=== PATIENT | male | born 1960 | race Caucasian/White ===

== ENCOUNTER 2021-01-02 15:03 | Emergency (ER) | payer MEDICAID ==
[~2021-01-02] VITALS: Ht 170.2 cm; Wt 74.8 kg
[2021-01-02 15:27] VITALS: BP 141/82
[2021-01-02] MEDS ORDERED: METF-440 PO ×2 (15:27→17:48)
--- NOTE | 2021-01-02 16:00 | NUR ---
THE PATIENT BIBS FOR MED REFILL. DENIES HAVING ANY DISTRESS. RESPIRATION REGULAR AND UNLABORED.
--- NOTE | 2021-01-02 18:00 | NUR ---
Patient discharged to home in stable condition. Written and verbal after care instructions given. Patient verbalizes understanding of instruction.
== END 2021-01-02 18:01 | disposition home or self-care (01) ==
LOC: ER 15:06
DX: E11.621 Type 2 diabetes mellitus with foot ulcer (principal); L97.529 Non-pressure chronic ulcer of other part of left foot with unspecified severity; Z76.0 Encounter for issue of repeat prescription; Z79.84 Long term (current) use of oral hypoglycemic drugs
CPT/HCPCS: 93971-TC

== ENCOUNTER 2021-03-15 13:02 | Emergency (ER) | payer MEDICAID ==
[~2021-03-15] VITALS: Ht 170.2 cm; Wt 81.2 kg
[~2021-03-15 13:02] MED LIST: METF-440 PO
[2021-03-15 13:32] VITALS: BP 137/78
--- NOTE | 2021-03-15 15:57 | NUR ---
PT REFUSED COVID ANTIGEN AND INFLUENZA SWAB
[2021-03-15] MEDS ORDERED: METF-440 PO (16:02)
--- NOTE | 2021-03-15 16:09 | NUR ---
Patient discharged to home in stable condition. Written and verbal after care instructions given. Patient verbalizes understanding of instruction.
== END 2021-03-15 16:10 | disposition home or self-care (01) ==
LOC: EDUNIT# 13:02 → ER 13:03
DX: E11.9 Type 2 diabetes mellitus without complications (principal); Z76.0 Encounter for issue of repeat prescription; Z79.84 Long term (current) use of oral hypoglycemic drugs
CPT/HCPCS: 71045-TC

== ENCOUNTER 2021-05-27 15:01 | Emergency (ER) | payer OTHER ==
[~2021-05-27] VITALS: Ht 170.2 cm; Wt 83.9 kg
[2021-05-27 15:01] VITALS: BP 131/88
[2021-05-27] MEDS ORDERED: METF-442 PO (16:16)
[2021-05-27] MEDS ORDERED: GLIP5TAB13 PO (16:16)
== END 2021-05-27 16:29 | disposition home or self-care (01) ==
LOC: ER 15:06
DX: E11.65 Type 2 diabetes mellitus with hyperglycemia (principal); Z76.0 Encounter for issue of repeat prescription; Z79.84 Long term (current) use of oral hypoglycemic drugs

== ENCOUNTER → 2021-07-05 | Emergency (ER) | payer OTHER ==
[~2021-07-05] VITALS: Ht 170.2 cm; Wt 79.4 kg
[~2021-07-05] MED LIST changes: +GLIP5TAB13 PO; +METF-442 PO
[2021-07-05 17:24] VITALS: BP 181/92
--- NOTE | 2021-07-05 18:04 | NUR ---
Patient discharged to home in stable condition. Written and verbal after care instructions given. Patient verbalizes understanding of instruction.
--- NOTE | 2021-07-05 18:05 | NUR ---
UNABLE TO DEPART, [facility] ERROR
== END | disposition home or self-care (01) ==
LOC: ER 17:20
DX: E11.65 Type 2 diabetes mellitus with hyperglycemia (principal); Z76.0 Encounter for issue of repeat prescription; R03.0 Elevated blood-pressure reading, without diagnosis of hypertension; R35.89 Other polyuria; Z79.899 Other long term (current) drug therapy
CPT/HCPCS: 82962-TC

== ENCOUNTER 2021-12-17 15:49 | Emergency (ER) | payer OTHER ==
[~2021-12-17] VITALS: Ht 170.2 cm; Wt 83.9 kg
[2021-12-17 16:15] VITALS: BP 153/66
[2021-12-17] MEDS ORDERED: METF-440 PO (16:30)
[2021-12-17] MEDS ORDERED: GLIP5TAB13 PO (16:30)
== END 2021-12-17 17:07 | disposition home or self-care (01) ==
LOC: ER 15:50
DX: E11.9 Type 2 diabetes mellitus without complications (principal); Z79.899 Other long term (current) drug therapy

== ENCOUNTER 2022-03-14 17:19 | Inpatient (IN) | payer OTHER ==
[~2022-03-14] VITALS: Ht 170.2 cm; Wt 83.0 kg
--- NOTE | 2022-03-14 17:30 | NUR ---
BIBS C/O abdominal distension, scrotal and ble swelling x 2 weeks. hypertensive captain waiter/waitress. AMBULATORY, PLACED IN BED, BREATHING UNLABORED SATURATING AT 96%RA
--- NOTE | 2022-03-14 17:41 | NUR ---
DR ESPINOZA AT BEDSIDE
--- NOTE | 2022-03-14 17:50 | NUR ---
BLOOD DRAWN AND SENT TO LAB
[2022-03-14] MEDS ORDERED: FUROSEMIDE 40 MG/4 ML VIAL ONE (17:55)
[2022-03-14] MEDS ORDERED: FUROSEMIDE 40 MG/4 ML VIAL IV ONE (18:00)
[2022-03-14 18:12] LABS: BASOPHILS % (AUTO) 1.1 % (0.0-2.0); HEMATOCRIT 40 % (39-51); HEMOGLOBIN 12.5 g/dL (13.5-17.5); LYMPHOCYTES # (AUTO) 1.2 K/uL (0.8-4.8); LYMPHOCYTES % (AUTO) 24.2 % (20.0-44.0); MEAN CORPUSCULAR HGB CONC 31 g/dl (31.0-36.0); MEAN CORPUSCULAR VOLUME 79 fL (80-96); MONOCYTES # (AUTO) 0.6 K/uL (0.1-1.30); MONOCYTES % (AUTO) 10.9 % (2.0-12.0); NEUTROPHILS # (AUTO) 3.1 K/uL (1.8-8.9); NEUTROPHILS % (AUTO) 60.8 % (43.0-81.0); PLATELET COUNT (AUTO) 292 K/uL (150-450); RED BLOOD CELL COUNT(AUTO) 5.09 MIL/uL (4.5-6.0); WHITE BLOOD COUNT (AUTO) 5.1 K/uL (4.3-11.0)
[2022-03-14 18:13] LABS: BASOPHILS # (AUTO) 0.1 K/uL (0.0-0.2)
[2022-03-14 18:45] LABS: CALCIUM, SERUM 8.6 mg/dL (8.5-10.1); CARBON DIOXIDE 26 mmol/L (21-32); CHLORIDE 104 mmol/L (98-107); CREATININE 1.5 mg/dL (0.6-1.3); GLUCOSE 215 mg/dL (74-106); POTASSIUM 3.7 mmol/L (3.5-5.1); SODIUM SERUM 140 mmol/L (136-145); UREA NITROGEN, BLOOD 19 mg/dL (7-18)
[2022-03-14 18:58] LABS: ALANINE AMINOTRANSFERASE 27 U/L (12-78); ALBUMIN 2.8 g/dL (3.4-5.0); ALKALINE PHOSPHATASE 188 U/L (46-116); ASPARTATE AMINOTRANSFERASE 17 U/L (15-37); BILIRUBIN,DIRECT 0.2 mg/dL (0.0-0.2); BILIRUBIN,TOTAL 0.4 mg/dL (0.2-1.0); TOTAL PROTEIN, SERUM 7.4 g/dL (6.4-8.2)
--- NOTE | 2022-03-14 19:47 | NUR ---
SWAB FOR COVID19 SENT TO LAB
--- NOTE | 2022-03-14 20:14 | NUR ---
[facility] PAGED
[2022-03-14] MEDS ORDERED: DEXTROSE 50%-WATER 50 ML DISP.SYRIN IV PRN (22:30)
[2022-03-14] MEDS ORDERED: Z GUARD REMEDY 4 OZ OINT TP PRN (22:30)
[2022-03-14] MEDS ORDERED: ONDANSETRON HCL/PF 4 MG/2 ML VIAL IVP PRN (22:30)
[2022-03-14] MEDS ORDERED: ACETAMINOPHEN 325 MG TABLET PO PRN (22:30)
--- NOTE | 2022-03-14 23:37 | NUR ---
URINE SAMPLE SENT TO LAB
--- NOTE | 2022-03-14 23:39 | NUR ---
RM325
--- NOTE | 2022-03-14 23:55 | NUR ---
REPORT GIVEN TO RL MONET
[2022-03-14 23:57] LABS: BILIRUBIN,URINE NEGATIVE (NEGATIVE); COLOR,URINE YELLOW (YELLOW); LEUKOCYTE ESTERASE ,URINE NEGATIVE (NEGATIVE); NITRITE, URINE NEGATIVE (NEGATIVE); PH,URINE 5.5 (5.0-8.0); PROTEIN,URINE 2+ mg/dl (NEGATIVE); UGLUCOSE NEGATIVE (NEGATIVE); UROBILINOGEN,URINE 0.2 EU/dL (0.2)
[2022-03-14 23:58] LABS: BACTERIA,URINE Rare /HPF (None Seen); HYALINE CASTS, URINE Few /LPF (None Seen); SQUAMOUS EPITHELIAL CELL,UR Few /HPF (None Seen); WBC,URINE 0-2 /HPF (0-3)
--- NOTE | 2022-03-15 00:33 | NUR ---
TRANSFER TO ROOM VIA ACLS PROTOCOL
--- NOTE | 2022-03-15 00:40 | NUR ---
SPIRAL WINDERBUSINESS PLANNING ANALYST NOTES RECEIVED PT FROM ER NURSE MAGALY SHINE. PATIENT IS A/O X 4. ON ROOM AIR. NO SOB. NO S/S OS DISTRESS NOTED. PT DENIES ANY PAIN. V/S STABLE. TELEMONITOR SHOWS SINUS RHYTHM. IV SITE ON THE LEFT AC G20, INTACT AND PATENT, FLUSHES WELL. SKIN ASSESSMENT DONE AND PERFORMED. PICTURES TAKEN. PT BELONGINGS CHECKED AND SIGNED BY PATIENT. PATIENT'S MONEY STORED AT THE DOZER OPERATOR SAFE. PATIENT IS AWARE AND INFORMED. RE-ORIENT PATIENT TO THE ROOM AND USE OF CALL LIGHT. PT VERBALIZED UNDERSTANDING. SAFETY PRECAUTIONS MAINTANED WITH BED ON LOCKED AND LOWEST POSITION. SIDE RAILS UP X 2. HOB ELEVATED. BED ALARM ON. URINAL AT THE BEDSIDE. CALL LIGHT WITHIN REACH.WILL ENDORSE TO THE NEXT SHIFT FOR CONTINUITY OF CARE.
[2022-03-15 01:00] VITALS: BP 141/49
[2022-03-15 06:19] LABS: BASOPHILS # (AUTO) 0.1 K/uL (0.0-0.2); BASOPHILS % (AUTO) 1.1 % (0.0-2.0); EOSINOPHILS % (AUTO) 3.7 % (0.0-6.0); HEMATOCRIT 36 % (39-51); HEMOGLOBIN 11.2 g/dL (13.5-17.5); LYMPHOCYTES # (AUTO) 1.2 K/uL (0.8-4.8); LYMPHOCYTES % (AUTO) 25.6 % (20.0-44.0); MEAN CORPUSCULAR HGB CONC 32 g/dl (31.0-36.0); MEAN CORPUSCULAR VOLUME 79 fL (80-96); MONOCYTES # (AUTO) 0.6 K/uL (0.1-1.30); MONOCYTES % (AUTO) 12.3 % (2.0-12.0); NEUTROPHILS # (AUTO) 2.8 K/uL (1.8-8.9); NEUTROPHILS % (AUTO) 57.3 % (43.0-81.0); PLATELET COUNT (AUTO) 260 K/uL (150-450); RED BLOOD CELL COUNT(AUTO) 4.52 MIL/uL (4.5-6.0); WHITE BLOOD COUNT (AUTO) 4.8 K/uL (4.3-11.0)
[2022-03-15 06:27] LABS: CALCIUM, SERUM 8.6 mg/dL (8.5-10.1); CREATININE 1.3 mg/dL (0.6-1.3); MAGNESIUM 1.6 mg/dL (1.8-2.4); PHOSPHORUS 3.5 mg/dL (2.5-4.9); POTASSIUM 3.7 mmol/L (3.5-5.1)
[2022-03-15 06:39] LABS: THYROID STIMULATING HORMONE 0.966 uIU/mL (0.358-3.74)
[2022-03-15 07:00] VITALS: BP 185/126
[2022-03-15] MEDS: BLOOD SUGAR DIAGNOSTIC 1 EACH STRIP IN SCH ×4 (07:00→21:33)
[2022-03-15] MEDS: INSULIN REGULAR, HUMAN 100 UNIT/ML 3 ML VIAL SQ PRN ×4 (07:03→21:38)
--- NOTE | 2022-03-15 07:05 | NUR ---
BATTERY BUILDER CLOSING NOTES PATIENT IS RESTING COMFORTABLY. A/O X 4. PATIENT IS STABLE. TELEMONITOR IS SINUS RHYTHM 87. MEDICATIONS GIVEN. NO S/S OF ANY DISTRESS NOTED. SAFETY MEASURES MAINTAINED WITH BED ON LOWEST POSITION AND LOCKED. SIDE RAILS UP X 2. CALL LIGHT WITHIN REACH. WILL ENDORSE TO THE NEXT SHIFT FOR CONTINUITY OF CARE.
--- NOTE | 2022-03-15 07:40 | NUR ---
GEOTECHNICAL FIELD TECHNICIAN OPENING NOTE PATIENT RECEIVED ASLEEP IN BED, EASILY AROUSED, VERY CALM AND WITHOUT ANY SIGNS OF DISTRESS. TELE MONITOR SHOWING NSR IN LOW 90s BPM. LUNG SOUNDS DIMINISHED IN LOWER LOBES, BUT OTHERWISE CLEAR TO AUSCULTATION. PT HAS POSITIVE BOWEL SOUNDS. ALL FOUR EXTREMITIES HAVE PRESENT PULSES, ARE WARM TO TOUCH WITH GOOD CAPILLARY REFILL. PT IS ALERT AND ORIENTED X 4. SAFETY PRECAUTIONS MAINTAINED WITH BED IN LOWEST LOCKED POSITION, THREE BED SIDERAILS UP, AND CALL BARRIOS WITHIN PT'S REACH. PT DEMONSTRATES GOOD JUDGEMENT AND ABLE TO MAKE HIS NEEDS KNOWN. PT IDENTIFICATION BAND INTACT AND SECURE TO PT'S WRIST. WILL MONITOR FOR NAHED.
[2022-03-15] MEDS: PANTOPRAZOLE 40 MG TABLET.DR PO SCH (07:47)
[2022-03-15] MEDS ORDERED: HEPARIN SODIUM, PORCINE 5000 UNITS/1 ML VIAL SQ SCH (09:00)
[2022-03-15] MEDS ORDERED: FUROSEMIDE 40 MG/4 ML VIAL IV SCH (09:00)
[2022-03-15] MEDS ORDERED: MAGNESIUM OXIDE 400 MG TABLET PO ONE ×2 (10:00→15:00)
[2022-03-15] MEDS ORDERED: POTASSIUM CHLORIDE 20 MEQ TAB.PRT.SR PO SCH (10:00)
[2022-03-15 12:00] VITALS: BP 178/123
[2022-03-15] MEDS: FUROSEMIDE 40 MG/4 ML VIAL IV SCH ×3 (13:30→17:37)
[2022-03-15] MEDS: glipiZIDE 5 MG TABLET PO SCH (14:26)
[2022-03-15] MEDS: POTASSIUM CHLORIDE 20 MEQ TAB.PRT.SR PO SCH ×3 (14:48→17:13)
[2022-03-15 16:00] VITALS: BP 167/106
[2022-03-15] MEDS: METFORMIN 500 MG TABLET PO SCH (17:13)
--- NOTE | 2022-03-15 18:50 | NUR ---
ACADEMIC ASSISTANT CLOSING NOTE PATIENT IS RESTING COMFORTABLY. A/O X 4. PATIENT IS STABLE. TELE MONITOR IS SINUS RHYTHM 60S TO 80S THROUGHOUT THE DAY. CXR COMPLETED AND SHOWS CONSISTENCE WITH CHF. MEDICATIONS GIVEN ORDERED. NO S/S OF ANY DISTRESS NOTED. SAFETY MEASURES MAINTAINED WITH BED ON LOWEST POSITION AND LOCKED. SIDE RAILS UP X 2. CALL LIGHT WITHIN REACH. PATIENT USED URINAL WELL TO VOID FREQUENTLYWHILE ON LASIX DIURETIC. WILL ENDORSE TO THE NEXT SHIFT FOR CONTINUITY OF CARE.
[2022-03-15 20:00] VITALS: BP 144/102
[2022-03-15] MEDS: INSULIN GLARGINE, 100 UNIT/ML CARTRIDGE SQ SCH (21:34)
[2022-03-16] VITALS: BP 140/87
[2022-03-16 04:00] VITALS: BP 155/101
[2022-03-16 06:05] LABS: BASOPHILS % (AUTO) 0.8 % (0.0-2.0); EOSINOPHILS % (AUTO) 3.9 % (0.0-6.0); HEMATOCRIT 34 % (39-51); HEMOGLOBIN 10.8 g/dL (13.5-17.5); LYMPHOCYTES # (AUTO) 1.2 K/uL (0.8-4.8); LYMPHOCYTES % (AUTO) 24.2 % (20.0-44.0); MEAN CORPUSCULAR HGB CONC 32 g/dl (31.0-36.0); MEAN CORPUSCULAR VOLUME 78 fL (80-96); MONOCYTES # (AUTO) 0.7 K/uL (0.1-1.30); MONOCYTES % (AUTO) 15.2 % (2.0-12.0); NEUTROPHILS # (AUTO) 2.7 K/uL (1.8-8.9); NEUTROPHILS % (AUTO) 55.9 % (43.0-81.0); PLATELET COUNT (AUTO) 266 K/uL (150-450); RED BLOOD CELL COUNT(AUTO) 4.35 MIL/uL (4.5-6.0); WHITE BLOOD COUNT (AUTO) 4.8 K/uL (4.3-11.0)
--- NOTE | 2022-03-16 06:15 | NUR ---
END OF SHIFT REPORT Patient in bed, Alert Oriented x4. Sinus rhythm HR 87 in the Tele monitor. Oxygen saturation high 90's on RA. BLE edema +1 Denies pain. No respiratory distress during the shift. Denies chest pain. No BM during the shift, voided urine. Good urine output. Echo pending result. Will endorse to oncoming RN.
[2022-03-16 06:43] LABS: ALBUMIN 2.2 g/dL (3.4-5.0); BILIRUBIN,TOTAL 0.5 mg/dL (0.2-1.0); CALCIUM, SERUM 8.3 mg/dL (8.5-10.1); CREATININE 1.3 mg/dL (0.6-1.3); MAGNESIUM 1.7 mg/dL (1.8-2.4); PHOSPHORUS 3.2 mg/dL (2.5-4.9); POTASSIUM 3.6 mmol/L (3.5-5.1); TOTAL PROTEIN, SERUM 5.9 g/dL (6.4-8.2)
[2022-03-16] MEDS: INSULIN REGULAR, HUMAN 100 UNIT/ML 3 ML VIAL SQ PRN ×3 (06:57→17:17)
[2022-03-16] MEDS: BLOOD SUGAR DIAGNOSTIC 1 EACH STRIP IN SCH ×4 (06:57→22:13)
[2022-03-16 07:00] VITALS: BP_SYST 142; BP_SYST 163; BP_DIAS 101; BP_DIAS 65
--- NOTE | 2022-03-16 07:45 | NUR ---
CARDIO TECH OPENING NOTE PATIENT RECEIVED AWAKE UP OUT-OF-BED BED USING TOILET IN THE BATHROOM. PATIENT IS CALM AND WITHOUT ANY SIGNS OF DISTRESS. TELE MONITOR SHOWING NSR IN LOW 90s BPM. LUNG SOUNDS DIMINISHED IN LOWER LOBES, BUT OTHERWISE CLEAR TO AUSCULTATION. PT HAS POSITIVE BOWEL SOUNDS. ALL FOUR EXTREMITIES HAVE PRESENT PULSES, ARE WARM TO TOUCH WITH GOOD CAPILLARY REFILL. PT IS ALERT AND ORIENTED X 4. SAFETY PRECAUTIONS MAINTAINED WITH BED IN LOWEST LOCKED POSITION, THREE BED SIDERAILS UP, AND CALL BARRIOS WITHIN PT'S REACH. PT DEMONSTRATES GOOD JUDGEMENT AND ABLE TO MAKE HIS NEEDS KNOWN. PT IDENTIFICATION BAND INTACT AND SECURE TO PT'S WRIST. WILL MONITOR FOR NAHED.
[2022-03-16] MEDS: PANTOPRAZOLE 40 MG TABLET.DR PO SCH (07:52)
[2022-03-16] MEDS: METFORMIN 500 MG TABLET PO SCH ×2 (08:29→17:26)
[2022-03-16] MEDS: glipiZIDE 5 MG TABLET PO SCH (08:29)
[2022-03-16] MEDS: ENOXAPARIN SODIUM 40 MG/0.4 ML DISP.SYRIN SQ SCH (08:30)
[2022-03-16] MEDS: POTASSIUM CHLORIDE 20 MEQ TAB.PRT.SR PO SCH ×6 (09:00→15:00)
[2022-03-16] MEDS: Magnesium 1GM/D5W 100ML PREMIX 100 ML IV SCH ×4 (10:00→13:45)
[2022-03-16 11:14] LABS: EOSINOPHILS % (MANUAL) 3 % (0-4); LYMPHOCYTES % (MANUAL) 19 % (16-48); MONOCYTES % (MANUAL) 14 % (0-11.0); NEUTROPHILS % (MANUAL) 64 (42-76)
[2022-03-16] MEDS: FUROSEMIDE 40 MG/4 ML VIAL IV SCH ×3 (11:48→17:26)
[2022-03-16] MEDS: SPIRONOLACTONE 25 MG TABLET PO SCH (11:48)
[2022-03-16] MEDS: CARVEDILOL 6.25 MG TABLET PO SCH ×2 (11:49→20:51)
[2022-03-16] MEDS: VALSARTAN 80 MG TABLET PO SCH (11:49)
--- NOTE | 2022-03-16 18:38 | NUR ---
JUNIOR QA ANALYST CLOSING NOTE PATIENT IS RESTING COMFORTABLY. A/O X 4. PATIENT IS STABLE. TELE MONITOR IS SINUS RHYTHM 60S TO 80S THROUGHOUT THE DAY. CXR COMPLETED AND SHOWS CONSISTENCE WITH CHF. MEDICATIONS GIVEN ORDERED. NO S/S OF ANY DISTRESS NOTED. SAFETY MEASURES MAINTAINED WITH BED ON LOWEST POSITION AND LOCKED. SIDE RAILS UP X 2. CALL LIGHT WITHIN REACH. PATIENT USED URINAL WELL TO VOID FREQUENTLY WHILE ON LASIX IV DIURETIC. WILL ENDORSE TO THE NEXT SHIFT FOR CONTINUITY OF CARE. Addendum: 03/16/22 at 1915 by MICHELE JUÁREZ RN Peripheral IV to left antecubital infiltrated and dislodged at 18:45 hours. Nee peripheral IV # 20 gauge inserted to right forearm at 18:55 hours, saline locked, patent and intact with blood return from flush.
--- NOTE | 2022-03-16 19:55 | NUR ---
MALTED MILK SUPERVISOR OPENING NOTE PATIENT AWAKE IN BED, ALERT/ORIENTED X 3, PT ABLE TO MAKE NEEDS KNOWN. PATIENT STABLE ON RA, NO S/S OF DISTRESS OR SOB NOTED, BREATHING EVEN AND UNLABORED. PATIENT ON EXTERNAL MEASUREMENT SUPERINTENDENT READING SINUS RHYTHM, HR: 89. IV ACCESS ON RFA #20G INTACT AND SALINE LOCKED. PER DAYSHIFT RN PATIENT IS AMBULATORY WITH STEADY GAIT TO BATHROOM. SAFETY MEASURES IN PLACE: CALL LIGHT WITHIN REACH, SIDE RAILS UP X 2, BED LOCKED IN LOWEST POSITION. WILL CONTINUE TO MONITOR PATIENT
[2022-03-16 20:19] VITALS: BP 146/101
[2022-03-16] MEDS: INSULIN GLARGINE, 100 UNIT/ML CARTRIDGE SQ SCH (22:00)
--- NOTE | 2022-03-16 22:13 | NUR ---
YARN TEXTURING MACHINE OPERATOR NOTE PATIENT'S BLOOD SUGAR 116, PER WEIGHT YARDAGE CHECKER HOLD LANTUS 10 UNITS
[2022-03-17 00:20] VITALS: BP 140/85
[2022-03-17 04:06] VITALS: BP 126/72
--- NOTE | 2022-03-17 06:32 | NUR ---
DIRECTOR LIFE CLOSING NOTE PATIENT AWAKE IN BED, ALERT/ORIENTED X 4, PT ABLE TO MAKE NEEDS KNOWN. PATIENT STABLE ON RA, NO S/S OF DISTRESS OR SOB NOTED, BREATHING EVEN AND UNLABORED. PATIENT ON EXTERNAL MEDIA MANAGER READING SINUS RHYTHM, HR: 81. IV ACCESS ON RFA #20G INTACT AND SALINE LOCKED. NO SIGNIFICANT CHANGES THIS SHIFT, MEDICATIONS GIVEN ORDERED, PT NEEDS MET THROUGHOUT SHIFT. BLOOD SUGARS WNL. SAFETY MEASURES IN PLACE: CALL LIGHT WITHIN REACH, SIDE RAILS UP X 2, BED LOCKED IN LOWEST POSITION. WILL ENDORSE TO DAYSHIFT RN FOR CONTINUITY OF CARE
[2022-03-17 06:33] LABS: BASOPHILS % (AUTO) 0.9 % (0.0-2.0); EOSINOPHILS % (AUTO) 3.2 % (0.0-6.0); HEMATOCRIT 34 % (39-51); HEMOGLOBIN 10.8 g/dL (13.5-17.5); LYMPHOCYTES # (AUTO) 1.2 K/uL (0.8-4.8); LYMPHOCYTES % (AUTO) 23.3 % (20.0-44.0); MEAN CORPUSCULAR HGB CONC 32 g/dl (31.0-36.0); MEAN CORPUSCULAR VOLUME 77 fL (80-96); MONOCYTES # (AUTO) 0.8 K/uL (0.1-1.30); MONOCYTES % (AUTO) 14.3 % (2.0-12.0); NEUTROPHILS # (AUTO) 3.1 K/uL (1.8-8.9); NEUTROPHILS % (AUTO) 58.3 % (43.0-81.0); PLATELET COUNT (AUTO) 303 K/uL (150-450); RED BLOOD CELL COUNT(AUTO) 4.36 MIL/uL (4.5-6.0); WHITE BLOOD COUNT (AUTO) 5.4 K/uL (4.3-11.0)
[2022-03-17] MEDS: BLOOD SUGAR DIAGNOSTIC 1 EACH STRIP IN SCH ×4 (06:33→21:07)
[2022-03-17] MEDS: INSULIN REGULAR, HUMAN 100 UNIT/ML 3 ML VIAL SQ PRN (06:33)
[2022-03-17 07:29] LABS: ALBUMIN 2.2 g/dL (3.4-5.0); BILIRUBIN,TOTAL 0.6 mg/dL (0.2-1.0); CALCIUM, SERUM 8.4 mg/dL (8.5-10.1); CREATININE 1.5 mg/dL (0.6-1.3); MAGNESIUM 1.7 mg/dL (1.8-2.4); PHOSPHORUS 3.4 mg/dL (2.5-4.9); POTASSIUM 4.3 mmol/L (3.5-5.1); TOTAL PROTEIN, SERUM 6.1 g/dL (6.4-8.2)
[2022-03-17] MEDS: PANTOPRAZOLE 40 MG TABLET.DR PO SCH (07:38)
--- NOTE | 2022-03-17 07:49 | NUR ---
PHARMACY INFORMATICIST OPENING NOTE PATIENT AWAKE IN BED, ALERT/ORIENTED X 4, PT ABLE TO MAKE NEEDS KNOWN. PATIENT STABLE ON RA, NO S/S OF DISTRESS OR SOB NOTED, BREATHING EVEN AND UNLABORED. PATIENT ON EXTERNAL GANG PUSHER READING SINUS RHYTHM, HR ON 80'S. IV ACCESS ON RFA #20G INTACT AND SALINE LOCKED. SAFETY MEASURES IN PLACE: CALL LIGHT WITHIN REACH, SIDE RAILS UP X 2, BED LOCKED IN LOWEST POSITION. WILL CONTINUE TO MONITOR.
[2022-03-17 08:00] VITALS: BP 148/100
[2022-03-17] MEDS: glipiZIDE 5 MG TABLET PO SCH (08:16)
[2022-03-17] MEDS: METFORMIN 500 MG TABLET PO SCH ×2 (08:16→16:33)
[2022-03-17] MEDS: VALSARTAN 80 MG TABLET PO SCH (08:17)
[2022-03-17] MEDS: CARVEDILOL 6.25 MG TABLET PO SCH ×2 (08:19→20:50)
[2022-03-17] MEDS: SPIRONOLACTONE 25 MG TABLET PO SCH (08:19)
[2022-03-17] MEDS: ENOXAPARIN SODIUM 40 MG/0.4 ML DISP.SYRIN SQ SCH (08:20)
[2022-03-17] MEDS ORDERED: POTASSIUM CHLORIDE 20 MEQ TAB.PRT.SR PO SCH (09:00)
[2022-03-17] MEDS ORDERED: Magnesium 1GM/D5W 100ML PREMIX PIGGYBACK IV ONE (09:00)
[2022-03-17] MEDS: METOLAZONE 2.5 MG TABLET PO SCH (10:20)
[2022-03-17] MEDS: FUROSEMIDE 100 MG/10 ML VIAL IV SCH ×3 (10:20→16:32)
[2022-03-17] MEDS: Magnesium 1GM/D5W 100ML PREMIX 100 ML IV SCH ×2 (10:20→11:08)
--- NOTE | 2022-03-17 11:20 | NUR ---
FISH HATCHERY SPECIALIST NOTES VERIFIED TO DR. OQUENDO TO D/C KCL 20MEQS ORDERED, PATIENT CURRENT POTASSIUM LEVEL IS 4.3. WILL MONITOR.
[2022-03-17 12:00] VITALS: BP 137/87
[2022-03-17 16:00] VITALS: BP 142/94
--- NOTE | 2022-03-17 16:39 | NUR ---
RN NOTES BLOOD SUGAR WAS 77, ORANGE JUICE GIVEN. TO MONITOR.
--- NOTE | 2022-03-17 18:40 | NUR ---
IT ASSISTANT CLOSING NOTE PATIENT AWAKE IN BED, ALERT/ORIENTED X 4, PT ABLE TO MAKE NEEDS KNOWN. PATIENT STABLE ON RA, NO S/S OF DISTRESS OR SOB NOTED, BREATHING EVEN AND UNLABORED. PATIENT ON EXTERNAL GAME WARDEN READING SINUS RHYTHM, HR: 88. IV ACCESS ON RFA #20G INTACT AND SALINE LOCKED. NO SIGNIFICANT CHANGES THIS SHIFT, MEDICATIONS GIVEN ORDERED, PT NEEDS MET THROUGHOUT SHIFT. BLOOD SUGARS WNL. SAFETY MEASURES IN PLACE: CALL LIGHT WITHIN REACH, SIDE RAILS UP X 2, BED LOCKED IN LOWEST POSITION. WILL ENDORSE TO DAYSHIFT RN FOR CONTINUITY OF CARE
--- NOTE | 2022-03-17 19:31 | NUR ---
MATERIAL PREPARATION WORKER OPENING NOTE RECEIVED PATIENT AAOX 4,ABLE TO MAKE NEEDS KNOWN.TIAGO WELL ON RM AIR SATTING 97.6%,NO SIGN SOB/DISTRESS NOTED,BREATHING EVEN AND UNLABORED.NO COMPLAI OF PAIN/DISCOMFORT AT THIS TIME,IV ACCESS ON RFA #20G INTACT AND SALINE LOCKED. SAFETY MEASURES IN PLACE: CALL LIGHT WITHIN REACH, SIDE RAILS UP X 2, BED LOCKED IN LOWEST POSITION. WILL CONTINUE TO MONITOR.
[2022-03-17] MEDS: INSULIN GLARGINE, 100 UNIT/ML CARTRIDGE SQ SCH (21:09)
--- NOTE | 2022-03-18 06:17 | NUR ---
DIGITAL FORENSICS EXAMINER CLOSING NOTE; PATIENT AAOX 4,ABLE TO MAKE NEEDS KNOWN.TIAGO WELL ON RM AIR SATTING 98%,NO SIGN SOB/DISTRESS NOTED,BREATHING EVEN AND UNLABORED.NO COMPLAIN OF PAIN/DISCOMFORT DURING SHIFT,ALL NEEDS ATTENDED,DUE MEDS GIVEN ORDER,IV ACCESS ON RFA #20G INTACT AND SALINE LOCKED. SAFETY MEASURES IN PLACE: CALL LIGHT WITHIN REACH, SIDE RAILS UP X 2, BED LOCKED IN LOWEST POSITION. WILL ENDORSED TO NEXT SHIFT,
[2022-03-18] MEDS: BLOOD SUGAR DIAGNOSTIC 1 EACH STRIP IN SCH ×3 (06:44→18:15)
[2022-03-18 07:04] LABS: BASOPHILS % (AUTO) 0.8 % (0.0-2.0); EOSINOPHILS % (AUTO) 4.1 % (0.0-6.0); HEMATOCRIT 37 % (39-51); HEMOGLOBIN 11.6 g/dL (13.5-17.5); LYMPHOCYTES # (AUTO) 1.1 K/uL (0.8-4.8); LYMPHOCYTES % (AUTO) 24.2 % (20.0-44.0); MEAN CORPUSCULAR HGB CONC 32 g/dl (31.0-36.0); MEAN CORPUSCULAR VOLUME 77 fL (80-96); MONOCYTES # (AUTO) 0.8 K/uL (0.1-1.30); MONOCYTES % (AUTO) 17.4 % (2.0-12.0); NEUTROPHILS # (AUTO) 2.5 K/uL (1.8-8.9); NEUTROPHILS % (AUTO) 53.5 % (43.0-81.0); PLATELET COUNT (AUTO) 299 K/uL (150-450); RED BLOOD CELL COUNT(AUTO) 4.75 MIL/uL (4.5-6.0); WHITE BLOOD COUNT (AUTO) 4.7 K/uL (4.3-11.0)
[2022-03-18 07:16] LABS: ALBUMIN 2.3 g/dL (3.4-5.0); BILIRUBIN,TOTAL 0.6 mg/dL (0.2-1.0); CALCIUM, SERUM 8.8 mg/dL (8.5-10.1); CREATININE 1.5 mg/dL (0.6-1.3); MAGNESIUM 1.9 mg/dL (1.8-2.4); PHOSPHORUS 4.1 mg/dL (2.5-4.9); POTASSIUM 3.8 mmol/L (3.5-5.1); TOTAL PROTEIN, SERUM 6.4 g/dL (6.4-8.2)
[2022-03-18 08:00] VITALS: BP 126/77
[2022-03-18] MEDS: SPIRONOLACTONE 25 MG TABLET PO SCH (08:56)
[2022-03-18] MEDS: PANTOPRAZOLE 40 MG TABLET.DR PO SCH (08:56)
[2022-03-18] MEDS: METFORMIN 500 MG TABLET PO SCH ×2 (08:56→18:15)
[2022-03-18] MEDS: METOLAZONE 2.5 MG TABLET PO SCH (08:57)
[2022-03-18] MEDS: glipiZIDE 5 MG TABLET PO SCH (08:57)
[2022-03-18] MEDS: VALSARTAN 80 MG TABLET PO SCH (08:58)
[2022-03-18] MEDS: CARVEDILOL 6.25 MG TABLET PO SCH (08:58)
[2022-03-18] MEDS: ENOXAPARIN SODIUM 40 MG/0.4 ML DISP.SYRIN SQ SCH (08:59)
[2022-03-18 12:00] VITALS: BP 132/84
[2022-03-18 16:00] VITALS: BP 126/73
[2022-03-18] MEDS ORDERED: VALS80TA31 PO (16:10)
[2022-03-18] MEDS ORDERED: METO2.5T7 PO (16:10)
[2022-03-18] MEDS ORDERED: CARV6.252 PO (16:10)
[2022-03-18] MEDS ORDERED: SPIR25TA6 PO (16:10)
[2022-03-18 16:12] LABS: EOSINOPHILS % (MANUAL) 3 % (0-4); LYMPHOCYTES % (MANUAL) 28 % (16-48); MONOCYTES % (MANUAL) 12 % (0-11.0); NEUTROPHILS % (MANUAL) 57 (42-76)
--- NOTE | 2022-03-18 18:32 | NUR ---
RN Closing Note Patient AOx4 able to express his own concerns. Per MD patient meets discharge criteria. Patient educated on importance of following up with pcp and cardiology as an outpatient. Zoll Life Vest was delivered and educated patient on the use of the vest. Educated patient on importance of medication adherence and precautions needed after hospital stay. Patient verbalized understanding. Discharge packet given, forms signed. Called daughter Shanon [phone] and provided information to contact physician. All safety precautions taken, patient ready for discharge pending warehouse order picker. Will endorse to night nurse if needed.
--- NOTE | 2022-03-18 19:45 | NUR ---
RN NOTE PATIENT'S FAMILY ARRIVED FOR PICK-UP/TRANSPORTATION. PATIENT STABLE. THIS RN REMOVED ID BAND, AND IV ACCESS. PRESSURE DRESSING APPLIED. PATIENT LEFT W/ ZOLL VEST. DR. KUMAR INFORMATION GIVEN TO PATIENT AGAIN. PATIENT WAS WHEEL-CHAIRED, BY THIS RN, TO CAR IN PARKING LOT. PATIENT STABLE.
== END 2022-03-18 19:45 | disposition home or self-care (01) | DRG 194 ==
LOC: ER 17:28 → TELE 03-15 00:01
PROVIDERS: ADMIT Nurse Practitioner Family; ATTEND Internal Medicine
DX: I13.0 Hypertensive heart and chronic kidney disease with heart failure and stage 1 through stage 4 chronic kidney disease, or unspecified chronic kidney disease (principal); N17.0 Acute kidney failure with tubular necrosis; J90 Pleural effusion, not elsewhere classified; D50.9 Iron deficiency anemia, unspecified; E11.22 Type 2 diabetes mellitus with diabetic chronic kidney disease; I42.9 Cardiomyopathy, unspecified; E11.65 Type 2 diabetes mellitus with hyperglycemia; E66.9 Obesity, unspecified; N18.9 Chronic kidney disease, unspecified; Z20.822 Contact with and (suspected) exposure to COVID-19; Z79.84 Long term (current) use of oral hypoglycemic drugs; Z68.33 Body mass index [BMI] 33.0-33.9, adult; Z83.3 Family history of diabetes mellitus; G47.33 Obstructive sleep apnea (adult) (pediatric); E83.42 Hypomagnesemia; N50.89 Other specified disorders of the male genital organs; I50.43 Acute on chronic combined systolic (congestive) and diastolic (congestive) heart failure; J98.11 Atelectasis
CPT/HCPCS: 36415; 71045-TC; 76770-TC; 80048-TC; 80053-TC; 80061-TC; 80076-TC; 81001; 82962-TC; 83735-TC; 83880; 84100-TC; 84443-TC; 84484-TC; 85025-TC; 85730-TC; 87081-TC; 93307-TC; C9803; G0378; J1644; J1650; J1815; J1940; J3475; J7030